=== PATIENT | female | born 1955 | race Caucasian/White ===

== ENCOUNTER 2022-08-09 09:32 | Emergency (ER) | payer MEDICARE, OTHER ==
[2022-08-09 10:17] LABS: ANION GAP 12.5 meq/L (7-15); CHLORIDE,CL 99 mmol/L (98-107); SODIUM,NA 137 mmol/L (136-145)
[2022-08-09 10:24] LABS: ESTIMATED GFR 40 mL/min (>=60)
[2022-08-09] MEDS: Bacitracin/Neomycin/Polymyxin B Oint 0.9 GM U/D Packet TOP ONE (11:11)
== END 2022-08-09 11:30 | disposition home or self-care (01) ==
LOC: LL.ED 09:32
DX: S00.83XA Contusion of other part of head, initial encounter (principal); S80.01XA Contusion of right knee, initial encounter; S80.02XA Contusion of left knee, initial encounter; E78.00 Pure hypercholesterolemia, unspecified; E11.65 Type 2 diabetes mellitus with hyperglycemia; E11.22 Type 2 diabetes mellitus with diabetic chronic kidney disease; I12.9 Hypertensive chronic kidney disease with stage 1 through stage 4 chronic kidney disease, or unspecified chronic kidney disease; N18.9 Chronic kidney disease, unspecified; I48.91 Unspecified atrial fibrillation; E66.9 Obesity, unspecified; Z68.30 Body mass index [BMI] 30.0-30.9, adult; W10.1XXA Fall (on)(from) sidewalk curb, initial encounter
CPT/HCPCS: 36415; 70450; 72125; 80053; 81003; 83735; 85025; 85610; 99284